=== PATIENT | male | born 1990 | race Caucasian/White ===

== ENCOUNTER 2017-09-10 16:33 | Emergency (ER) | payer OTHER ==
[2017-09-11] MEDS: SOD CHLORIDE 0.9% 1,000 ML IV (00:51)
[2017-09-11] MEDS: METOCLOPRAMIDE 10 MG INJ IV (00:51)
[2017-09-11] MEDS: DIPHENHYDRAMINE 50 MG INJ IV (00:51)
[2017-09-11 03:10] LABS: ADD MAN DIFF? NO
[2017-09-11 03:12] LABS: WHITE BLOOD COUNT 11.7 10^3/ul (4.8-10.8)
[2017-09-11 03:12] LABS: BASOPHILS % 0.2 % (0.0-2.0); HEMOGLOBIN 14.9 g/dl (14.0-18.0); LYMPHOCYTES % 8.9 % (15.0-51.0); MEAN CORPUSCULAR HEMOGLOBIN 29.1 pg (29.0-33.0); MEAN CORPUSCULAR HGB CONC 33.1 g/dl (32.0-37.0); MEAN CORPUSCULAR VOLUME 87.9 fl (82.0-101.0); MEAN PLATELET VOLUME 12.4 fl (7.4-10.4); MONOCYTE # 0.5 10^3/ul (0.3-0.9); MONOCYTES % 3.9 % (0.0-11.0); NEUTROPHIL # 10.2 10^3/ul (1.6-7.5); NEUTROPHILS % 86.7 % (39.0-77.0); PLATELET COUNT 235 10^3/UL (140-415); RED BLOOD COUNT 5.12 10^6/ul (4.70-6.10); RED CELL DISTRIBUTION WIDTH 13.4 % (11.5-14.5)
[2017-09-11 03:36] LABS: ANION GAP 19 (8-16); BLOOD UREA NITROGEN 17 mg/dl (7-20); CALCIUM 9.6 mg/dl (8.4-10.2); CARBON DIOXIDE 26 mmol/L (21-31); CHLORIDE 101 mmol/L (97-110); CREATININE 0.77 mg/dl (0.61-1.24); GLUCOSE 108 mg/dl (70-220); POTASSIUM 4.2 mmol/L (3.5-5.1); SODIUM 142 mmol/L (135-144)
[2017-09-11 04:01] LABS: TROPONIN-I < 0.012 ng/ml (0.00-0.12)
== END 2017-09-11 04:30 | disposition home or self-care (01) ==
LOC: E/R 16:33
DX: R55 Syncope and collapse (principal)
CPT/HCPCS: 36415; 70450; 71045; 80048; 82962; 84484; 85025; 93005; 96374; 96375; 99285-25